=== PATIENT | female | born 1980 | race Two or more races ===

== ENCOUNTER 2018-09-17 14:46 | Emergency (ER) | payer OTHER, SELFPAY ==
[~2018-09-17] VITALS: Ht 165.1 cm; Wt 76.0 kg
[2018-09-17 14:49] VITALS: BP 124/84
--- NOTE | 2018-09-17 15:01 | NUR ---
PT HAS CO FLANK PAIN FOR 2 DAYS. DENIES PAINFUL URINATION OR FREQUENCY. PT STATES SHE HAD HX OF KIDNEY INFECTION. PT AMBULATED TO BATHROOM STEADILY. UA OBTAINED
[2018-09-17 15:28] LABS: CULTURE INDICATED? YES; HCG UR SG 1.024 (1.003-1.030); MICROSCOPIC AUTO
--- NOTE | 2018-09-17 16:08 | NUR ---
Patient given discharge instructions and they have confirmed that they understand the instructions. Patient ambulatory with steady gait.
== END 2018-09-17 16:10 | disposition home or self-care (01) ==
LOC: ED 15:58
DX: N30.00 Acute cystitis without hematuria (principal)
CPT/HCPCS: 81001; 81025; 87086; 99283